=== PATIENT | female | born 1995 ===

== ENCOUNTER 2021-10-03 23:35 | Emergency (ER) | payer OTHER ==
[2021-10-04] MEDS ORDERED: MORPHINE 4 MG/1 ML INJ IV ONE (02:00)
[2021-10-04] MEDS ORDERED: ONDANSETRON 4 MG/2 ML INJ IV ONE (02:00)
[2021-10-04 02:44] LABS: Basophils % (Auto) 0.2 % (0.0-1.8); Eosinophils # (Auto) 0.1 K/mm3 (0.0-0.4); Eosinophils % (Auto) 1.2 % (0.0-4.3); Hematocrit 37.7 % (30.3-42.9); Hemoglobin 12.6 gm/dl (10.1-14.3); Lymphocytes # (Auto) 1.5 K/mm3 (1.2-5.4); Mean Corpuscular HGB Conc 33 % (30-34); Mean Corpuscular Volume 92 fl (79-97); Monocytes # (Auto) 0.3 K/mm3 (0.0-0.8); Monocytes % (Auto) 3.7 % (0.0-7.3); Platelet Count 312 K/mm3 (140-440); Red Blood Count 4.12 M/mm3 (3.65-5.03); Red Cell Distribution Width 13.8 % (13.2-15.2)
--- NOTE | 2021-10-04 03:39 | Ultrasound Report ---
ULTRASOUND ABDOMEN, COMPLETE INDICATION / CLINICAL INFORMATION: Abdominal Pain. COMPARISON: None available. FINDINGS: PANCREAS: No significant abnormality. ABDOMINAL AORTA: No significant abnormality. IVC: No significant abnormality. LIVER: No significant abnormality. Normal hepatopedal blood flow in the main portal vein. GALLBLADDER: Mild sludge. No stones or wall thickening. BILE DUCTS: No significant abnormality. Common bile duct measures 3 mm. KIDNEYS: Right: No significant abnormality. Left: No significant abnormality. SPLEEN: No significant abnormality. FREE FLUID: None. ADDITIONAL FINDINGS: None. IMPRESSION: 1. Mild gallbladder sludge. 2. No stones, biliary dilatation or wall thickening. Signer Name: Raman Middleton MD Signed: 10/04/2021 3:34 AM Workstation Name: [id number]
[2021-10-04 05:03] LABS: Mucus,Urine 3+ /HPF
[2021-10-04 05:06] LABS: HCG Qualitative,Urine Negative (Negative)
[2021-10-04 05:07] LABS: Bilirubin,Urine Negative (Negative); Color,Urine Dark Yellow (Yellow)
[2021-10-04 05:08] LABS: Blood,Urine Trace (Negative); Urobilinogen,Urine < 2.0 mg/dL (<2.0)
--- NOTE | 2021-10-04 05:30 | Emergency Department Report ---
ED Abdominal Pain HPI - General Chief Complaint: Abdominal Pain Stated Complaint: SEVERE STOMACH PAIN Source: patient Mode of arrival: Ambulatory Limitations: Language Barrier - History of Present Illness Initial Comments: This patient presents to the emergency department for abdominal pain localized to the epigastric area. The pain is described as sharp and without radiation to the back. The patient states that her mother has a history of gallstones and underwent cholecystectomy. MD Complaint: abdominal pain Radiation: epigastric Migration to: no migration Severity: severe Severity scale (0 -10): 10 Quality: sharp Consistency: constant Improves With: nothing Worsens With: movement Associated Symptoms: nausea. denies: vomiting, diarrhea - Related Data Previous Rx's Medication Instructions Recorded Last Taken Type Ketorolac [Toradol] 10 mg PO Q6H PRN #20 tab 10/04/21 Unknown Rx Ondansetron (Nf) [Zofran TAB] 8 mg PO Q8HR PRN #10 tablet 10/04/21 Unknown Rx Pantoprazole [Protonix] 40 mg PO BID #20 tablet 10/04/21 Unknown Rx Allergies Allergy/AdvReac Type Severity Reaction Status Date / Time No Known Allergies Allergy Verified 10/04/21 01:52 ED Review of Systems ROS: Stated complaint: SEVERE STOMACH PAIN Other details as noted in HPI Comment: All other systems reviewed and negative Gastrointestinal: abdominal pain. denies: vomiting, diarrhea, constipation Genitourinary: denies: urgency, dysuria, frequency ED Past Medical Hx - Medications Home Medications: Home Medications Medication Instructions Recorded Confirmed Last Taken Type Ketorolac [Toradol] 10 mg PO Q6H PRN #20 tab 10/04/21 Unknown Rx Ondansetron (Nf) [Zofran TAB] 8 mg PO Q8HR PRN #10 tablet 10/04/21 Unknown Rx Pantoprazole [Protonix] 40 mg PO BID #20 tablet 10/04/21 Unknown Rx ED Physical Exam - General Limitations: Language Barrier General appearance: alert, in no apparent distress - Head Head exam: Present: atraumatic, normocephalic - Eye Eye exam: Present: normal appearance - ENT ENT exam: Present: mucous membranes moist - Neck Neck exam: Present: normal inspection - Respiratory Respiratory exam: Present: normal lung sounds bilaterally. Absent: respiratory distress - Cardiovascular Cardiovascular Exam: Present: regular rate, normal rhythm. Absent: systolic murmur, diastolic murmur, rubs, gallop - GI/Abdominal GI/Abdominal exam: Present: soft, tenderness (In the epigastric area), normal bowel sounds. Absent: guarding, rebound, rigid - Rectal Rectal exam: Present: deferred - Extremities Exam Extremities exam: Present: normal inspection - Back Exam Back exam: Present: normal inspection, full ROM - Skin Skin exam: Present: warm, dry, intact, normal color. Absent: rash ED Course Vital Signs 10/04/21 10/04/21 10/04/21 00:05 00:15 01:30 Temperature 99.1 F Pulse Rate 106 H 71 Respiratory Rate Blood Pressure 102/64 Blood Pressure [Left] O2 Sat by Pulse 97 99 97 Oximetry 10/04/21 10/04/21 10/04/21 01:45 02:00 02:10 Temperature Pulse Rate Respiratory 15 Rate Blood Pressure 106/58 106/58 Blood Pressure [Left] O2 Sat by Pulse 98 99 Oximetry 10/04/21 10/04/21 10/04/21 02:16 02:30 02:46 Temperature Pulse Rate Respiratory Rate Blood Pressure 100/58 100/58 100/57 Blood Pressure [Left] O2 Sat by Pulse 97 98 98 Oximetry 10/04/21 10/04/21 10/04/21 03:00 03:16 03:30 Temperature Pulse Rate Respiratory Rate Blood Pressure 100/57 93/48 93/48 Blood Pressure [Left] O2 Sat by Pulse 99 97 99 Oximetry 10/04/21 10/04/21 10/04/21 03:46 04:00 04:16 Temperature Pulse Rate Respiratory Rate Blood Pressure 85/46 85/46 89/52 Blood Pressure [Left] O2 Sat by Pulse 97 96 95 Oximetry 10/04/21 10/04/21 10/04/21 04:30 04:40 04:41 Temperature 98.8 F Pulse Rate Respiratory 15 Rate Blood Pressure 89/52 Blood Pressure [Left] O2 Sat by Pulse 99 99 Oximetry 10/04/21 05:49 Temperature 98.9 F Pulse Rate 74 Respiratory 16 Rate Blood Pressure Blood Pressure 92/47 [Left] O2 Sat by Pulse 100 Oximetry - Reevaluation(s) Reevaluation #1: The patient was reevaluated prior to the decision to discharge and was noted to be improved with resolution of her pain. ED Medical Decision Making - Lab Data Result diagrams: 10/04/21 02:32 The patient's urine and lipase were noted to be negative. The white blood count was also normal - Radiology Data Radiology results: report reviewed The radiology report was reviewed by me and the patient was noted to have mild gallbladder sludge without any evidence of stones or wall thickening. - Medical Decision Making The patient was noted to improve with the treatment. She was advised of the ultrasound interpretation and asked to follow-up with the general surgeon on-call. She was asked to return to the emergency department if any problems. Critical care attestation.: If time is entered above; I have spent that time in minutes in the direct care of this critically ill patient, excluding procedure time. ED Disposition Clinical Impression: Abdominal pain Qualifiers: Abdominal location: epigastric Qualified Code(s): R10.13 - Epigastric pain Disposition: 01 HOME / SELF CARE / HOMELESS Is pt being admited?: No Does the pt Need Aspirin: No Condition: Stable Instructions: Abdominal Pain (ED) Prescriptions: Pantoprazole [Protonix] 40 mg PO BID #20 tablet Ketorolac [Toradol] 10 mg PO Q6H PRN #20 tab PRN Reason: Pain Ondansetron (Nf) [Zofran TAB] 8 mg PO Q8HR PRN #10 tablet PRN Reason: Nausea And Vomiting Referrals: PRIMARY CARE,MD [Primary Care Provider] - 3-5 Days Print Language: [place]
[2021-10-04 05:50] VITALS: BP 92/47
== END 2021-10-04 05:50 | disposition home or self-care (01) ==
LOC: ED 23:35
DX: R10.13 Epigastric pain (principal)
CPT/HCPCS: 36415; 76700; 81001; 81025; 83690; 85025; 96374; 96375; 99284; J2270; J2405; 99283